=== PATIENT | female | born 1955 | race Caucasian/White ===

== ENCOUNTER 2025-03-12 10:59 | Outpatient (CLI) | payer MEDICARE ==
[2025-03-12 11:40] LABS: Hematocrit 37.6 % (34.9-44.5); Hemoglobin 12.1 g/dL (12.0-15.5); Mean Corpuscular Hemoglobin 29.1 pg (27.0-33.0); Mean Corpuscular Volume 90.4 fL (81.6-98.3); Platelet Count 153 10x3/uL (150-450); Red Blood Cell (RBC) Count 4.16 10x6/uL (3.90-5.03); White Blood Cell (WBC) Count 6.23 10x3/uL (3.5-10.5)
[2025-03-12 11:59] LABS: Anion Gap 10 mmol/L (10-20); BUN (Urea Nitrogen) 25 mg/dL (9.8-20.1); Calc. Creatinine Clearance 0 mL/min (70-130); Calcium 8.8 mg/dL (7.8-10.44); Carbon Dioxide 25 mmol/L (23-31); Chloride 109 mmol/L (98-107); Glucose 106 mg/dL (80-115); Potassium 4.5 mmol/L (3.5-5.1); Sodium 139 mmol/L (136-145)
== END 2025-03-12 11:00 | disposition home or self-care (01) ==
LOC: CSHLAB 10:59
PROVIDERS: ATTEND Surgery
DX: Z01.818 Encounter for other preprocedural examination (principal); K42.9 Umbilical hernia without obstruction or gangrene
CPT/HCPCS: 80048; 85027; 93005; 93010

== ENCOUNTER 2025-03-18 05:57 | Day surgery (SDC) | payer MEDICARE ==
[2025-03-12 11:21] VITALS: BMI 40.6
[2025-03-18] MEDS ORDERED: Bupivacaine HCl 0.5%/Epinephrine 1:200,000/PF 30 ml Vial ONE (07:58)
[2025-03-18] MEDS ORDERED: CEFAZOLIN 2 GM VIAL ONE (08:05)
[2025-03-18] MEDS ORDERED: PROPOFOL 20 ML ONE (08:50)
[2025-03-18] MEDS ORDERED: SUGAMMADEX SODIUM 200 MG/2 ML VIAL ONE (08:50)
[2025-03-18] MEDS ORDERED: Rocuronium Bromide 10 MG/ML (10ML VIAL) ONE (08:50)
[2025-03-18] MEDS ORDERED: Ondansetron PF 4 MG/2 ML Vial ONE ×2 (09:10→10:01)
[2025-03-18] MEDS ORDERED: Ketorolac Tromethamine 30 MG (1 mL) VIAL ONE (10:01)
[2025-03-18] MEDS ORDERED: HYDROcodone/Acetaminophen 5/325 mg Tablet ONE (10:49)
== END 2025-03-18 11:38 | disposition home or self-care (01) ==
LOC: CSHSDC 05:57
PROVIDERS: ATTEND Surgery
PROC: 0WQF4ZZ Repair Abdominal Wall, Percutaneous Endoscopic Approach (ICD-10-PCS; principal; 2025-03-18)
PROC: 3E0T3BZ Introduction of Anesthetic Agent into Peripheral Nerves and Plexi, Percutaneous Approach (ICD-10-PCS; 2025-03-18)
DX: K42.9 Umbilical hernia without obstruction or gangrene (principal); I10 Essential (primary) hypertension; I25.10 Atherosclerotic heart disease of native coronary artery without angina pectoris; I48.0 Paroxysmal atrial fibrillation; E78.5 Hyperlipidemia, unspecified; Z79.01 Long term (current) use of anticoagulants; Z79.899 Other long term (current) drug therapy; Z79.82 Long term (current) use of aspirin
CPT/HCPCS: 49593; 64486; C1781; J1100; J1885; J2405; J2704; J3010; S2900